=== PATIENT | female | born 1955 | race Caucasian/White ===

== ENCOUNTER 2022-04-27 14:36 | Outpatient (CLI) | payer MEDICARE, SELFPAY ==
--- OUTSIDE RECORDS SUMMARY | 2022-04-02 09:35 | XMS_ITS | Continuity of Care Document ---
:1955 Author Allergies, Adverse Reactions, Alerts Allergen Type Severity Reaction Last Verified Status Updated Influenza Allergy Moderate Hives February 04, Yes Active Vaccines 2020 simbrinza Allergy Unknown red eyes October No Active 2019 Social History Smoking Status Status Start Date End Date Date of Observat ion Never smoked tobacco February 23, 022 11:07am (finding) Observation Status Observation Response Date of Response Non-smoker June 16, 2016 1:24pm Exercises regularly June 16, 2016 1:24pm Social drinker June 16, 2016 1:25pm , paraprofessonal, 4 February 23 10:47am adult children Additional Data Assigned Sex Female Problems Active Problems Medical Problem Onset Date Status Stress bladder incontinence, female Acti ve Glaucoma 2017 Active Dyslipidemia Active Anxiety about health Active Generalized anxiety disorder Active History of tubal ligation Active Medications Medication Status Dose Units Route Directions Qty Days Start End Ins tructions Date Date B-Complex W/ Active 1 EA PO Folic Acid (B Complex) TAB Cholecalcifer Active 2000 UNIT OR Daily 100 February ol (Vitamin 9, D3) 2,000 2019 Unit TAB 3:06pm Escitalopram Active 10 MG PO Daily February Oxalate , (Lexapro) 10 2021 Mg TAB 10:53am Latanoprost Active 1 DROP BOTH Bedtime 1 EYES Amoxicillin/C Discontin 1 TAB PO Twice Daily October lavulanate ued For 10 Days , y Potassium 2019, (Amoxicillin 10:13am 2020 & Pot 12:48p Clavulanate) m 875 Mg/125 Mg TAB Azithromycin Discontin 250-5 MG PO Daily March 5 00 mg x 1 ued 00 y 4th, 3rd, day then 250 2020 2020 mg daily x 4 4:59pm 11:27a days m B-Complex Discontin 1 EA PO March Vitamins ued , (B-Complex) 2020 CAP 11:27a m Brinzolamide- Discontin 1 ML OP Januar Brimonidine ued y 4th, Tartr 2019 (Simbrinza) 1 9:58am Ml LILLIAN Cholecalcifer Discontin 2000 UNIT PO Daily 90 Decembe Octuar ol (Vitamin ued r 20th, y D) 2,000 Unit 2017, TAB 8:35am 2019 1:19pm Clobetasol Discontin 1 ROBERT TOP Twice A Day 15 Augus t APPLY Propionate ued as needed , SPARI NGLY TO (Clobetasol 2014 AFFECTED AREA Propionate 1:02pm Cream) 0.05 % CRE Covid-19 Discontin 30 MCG IM Once October (Sars-Cov-2) ued 11, y Mrna Vir 2022 08, (Pfizer-Biont 10:10am 2021 ech Covid-19) 11:00a 30 Mcg/0.3 Ml m INJ Diphtheria/Te Discontin 0.5 ML IM Once 1 Decembe Decemb tanus/Acell ued r , er Pertussis 2017, (Adacel) 0.5 1:22pm 2018 Ml INJ 1:41pm Escitalopram Discontin 10 MG PO Daily January Oxalate ued 28, 17, (Lexapro) 10 2020 2021 Mg TAB 10:47am 10:53a m Escitalopram Discontin 10 MG PO Daily March Oxalate ued 3rd, 28, (Lexapro) 10 2019 2020 Mg TAB 11:35am 10:47a m Escitalopram Discontin 10 MG PO Daily 90 January Oxalate ued 15, , (Lexapro) 10 2019 2019 Mg TAB 10:36am 11:35a m Escitalopram Discontin 10 MG PO Daily 60 uajanuary Oxalate ued y 4th, 15, (Lexapro) 10 2019 2019 Mg TAB 10:42am 10:36a m Estrogens Discontin 0.5 GRAMS PV Twice 42.5 April Conjugated ued Weekly , , (Premarin 2013 2014 Cream) 0.625 9:47am 1:02pm Mg/1 Gm CRE Multiple Discontin 1 EA PO Shanel Vitamin ued 3rd, (Multivitamin 2019 s) CAP 11:27a m Multiple Discontin 1 EA PO Daily April Vitamin ued , (Multivitamin 2013 s) TAB 9:07am Multiple Discontin 1 EA PO Februa Vitamins W/ ued ry Minerals 4th, (Ocuvite) TAB 2019 10:12a m Nitrofurantoi Discontin 100 MG PO Twice A Day 10 Au francis n ued 5th, Monoh/Nitrofu 2014 r Macro 1:02pm (Macrobid) 100 Mg CAP [place]-3 Fatty Discontin 1200 MG PO Daily February Acids (Fish ued , Oil) 1,200 Mg 2021 CAP 10:30a m Immunizations Immunization Event Date Not Given Dose Sr. Consultant Lot Vac cine Reason Number Number Informatio n Statement (VIS) Deta il COVID-19 Pfizer January 10, PFIZER-BIONTECH [id number] 2020 COVID-19 Pfizer January 30, PFIZER-BIONTECH [id number] 2020 COVID- Pfizer October 12 PFIZER-BIO [id number] 2021 Tetanus/Diptheri September 09 a 2017 Tdap July 10 (adolescent/adul 2007 t) Tdap September 10 SANOFI (adolescent/adul 2017 t) Advance Directives Advance Directive Response Recorded Date/Time Has patient completed a No February 23, 2022 1 1:07am Health Care Directive? Insurance Providers Guarantor Aquiles Friend Address [address] [place], [place] [id number] Contact Info. Home Phone: Payer Policy Id Coverage Id Subscriber's Subscriber Id Effective E xpiration Name Date Date [facility] [id number] Aquiles Friend [id number] Medicare Plans
--- NOTE | 2022-04-27 14:40 | CRLHL7_ITS ---
For Patients: As a result of the Century Cures Act, medical imaging exams and procedure reports are released immediately into your electronic medical record. You may view this report before your referring provider. If you have questions, please contact your health care provider. BILATERAL MAMMOGRAM WITH COMPUTER-AIDED DETECTION AND TOMOSYNTHESIS TECHNIQUE: CC and MLO views were obtained. These mammographic images have been obtained using full-field digital technique. These mammographic images were interpreted with the benefit of computer-aided detection. Breast Tomosynthesis was used in this interpretation. COMPARISON FILM: 12/17/2020, 11/07/2019, 07/26/2018. FINDINGS: There are scattered areas of fibroglandular density IMPRESSION: There is no radiographic evidence for malignancy. ASSESSMENT: BI-RADS Category 1: Negative RECOMMENDATION: Routine screening mammogram in 1 year. A lay language report of this examination will be provided to the patient. Patrick Collins M.D. Diagnostic Radiologist [email or web address] ELENA/[email or web address] gr/Dictated by: Patrick Collins MD @ 04/28/2022 9:01:00 AM (Electronically Signed)
== END 2022-04-27 14:37 | disposition home or self-care (01) ==
LOC: MAMMO 14:37
PROVIDERS: PCP Family Medicine; Visit Provider Family Medicine
DX: Z12.31 Encounter for screening mammogram for malignant neoplasm of breast (principal)
CPT/HCPCS: 77063; 77067

== ENCOUNTER 2023-01-18 08:31 | Outpatient (CLI) | payer MEDICARE, BC, SELFPAY | END 2023-01-18 08:32 | disposition home or self-care (01) | PROVIDERS: PCP Family Medicine; Visit Provider Family Medicine | DX: Z00.00 Encounter for general adult medical examination without abnormal findings (principal); E55.9 Vitamin D deficiency, unspecified; E78.5 Hyperlipidemia, unspecified; Z13.1 Encounter for screening for diabetes mellitus | CPT/HCPCS: 80061; 82306; 82947 ==

== ENCOUNTER 2023-02-08 08:40 | Outpatient (CLI) | payer MEDICARE, BC, SELFPAY ==
--- NOTE | 2023-02-08 10:23 | W.ANESCHARGE ---
Anesthesia Charges Start Date/Time Anesthesia Start Date: 02/08/23 Anesthesia Start Time: 09:55 Stop Date/Time Anesthesia Stop Date: 02/08/23 Anesthesia Stop Time: 10:20
--- NOTE | 2023-02-08 10:55 | W.ANESCHARGE ---
Anesthesia Charges Start Date/Time Anesthesia Start Date: 02/08/23 Anesthesia Start Time: 09:55 Stop Date/Time Anesthesia Stop Date: 02/08/23 Anesthesia Stop Time: 10:20
== END 2023-02-08 08:41 | disposition home or self-care (01) ==
LOC: OP CLINIC 08:41
PROVIDERS: PCP Family Medicine; Visit Provider Surgery
DX: Z12.11 Encounter for screening for malignant neoplasm of colon (principal); K57.30 Diverticulosis of large intestine without perforation or abscess without bleeding; Z80.0 Family history of malignant neoplasm of digestive organs
CPT/HCPCS: 45378; 812; J2704

== ENCOUNTER 2023-05-03 11:13 | Outpatient (CLI) | payer MEDICARE, BC, SELFPAY ==
--- NOTE | 2023-05-03 11:30 | CRLHL7_ITS ---
For Patients: As a result of the Cures Act, medical imaging exams and procedure reports are released immediately into your electronic medical record. You may view this report before your referring provider. If you have questions, please contact your health care provider. BILATERAL SCREENING MAMMOGRAM WITH COMPUTER-AIDED DETECTION AND TOMOSYNTHESIS TECHNIQUE: CC and MLO views were obtained. These mammographic images have been obtained using full-field digital technique. These mammographic images were interpreted with the benefit of computer-aided detection. Breast tomosynthesis was used in this interpretation. COMPARISON FILM: 04/27/22, 12/17/20, 11/07/19. FINDINGS: There are scattered areas of fibroglandular density. IMPRESSION: There is no radiographic evidence for malignancy. ASSESSMENT: BI-RADS Category 1: Negative RECOMMENDATION: Routine screening mammogram in 1 year. A lay language report of this examination will be provided to the patient. PATRICK GLASS M.D. Diagnostic Radiologist [email or web address] ELENA/[email or web address] Transcribed: 05/03/2023, 6:[address]/Dictated by: Patirck Glass MD @ 05/03/2023 1:12:00 PM (Electronically Signed)
== END 2023-05-03 11:14 | disposition home or self-care (01) ==
PROVIDERS: PCP Family Medicine; Visit Provider Family Medicine
DX: Z12.31 Encounter for screening mammogram for malignant neoplasm of breast (principal)
CPT/HCPCS: 77063; 77067

== ENCOUNTER 2024-02-29 08:05 | Outpatient (CLI) | payer MEDICARE, BC, SELFPAY | END 2024-02-29 08:06 | disposition home or self-care (01) | LOC: NFLDREF 03-20 10:28 | PROVIDERS: PCP Family Medicine; Referring Provider Family Medicine; Visit Provider Family Medicine | DX: E78.5 Hyperlipidemia, unspecified (principal); E55.9 Vitamin D deficiency, unspecified; F41.1 Generalized anxiety disorder | CPT/HCPCS: 80053; 80061; 82306 ==

== ENCOUNTER 2024-05-04 14:40 | Outpatient (CLI) | payer MEDICARE, BC, SELFPAY ==
--- NOTE | 2024-05-04 15:00 | CRLHL7_ITS ---
For Patients: As a result of the Century Cures Act, medical imaging exams and procedure reports are released immediately into your electronic medical record. You may view this report before your referring provider. If you have questions, please contact your health care provider. BILATERAL SCREENING MAMMOGRAM WITH COMPUTER-AIDED DETECTION AND TOMOSYNTHESIS TECHNIQUE: CC and MLO views were obtained. These mammographic images have been obtained using full-field digital technique. These mammographic images were interpreted with the benefit of computer-aided detection. Breast Tomosynthesis was used in this interpretation. COMPARISON FILM: 05/03/23, 04/27/22, 12/17/20. FINDINGS: There are scattered areas of fibroglandular density IMPRESSION: There is no radiographic evidence for malignancy. ASSESSMENT: BI-RADS Category 1: Negative RECOMMENDATION: Routine screening mammogram in 1 year. A lay language report of this examination will be provided to the patient. Patrick Collins M.D. Diagnostic Radiologist [email or web address] MARVIN/Dictated by: Patrick Collins MD @ 05/04/2024 3:23:00 PM (Electronically Signed)
== END 2024-05-04 14:41 | disposition home or self-care (01) ==
PROVIDERS: PCP Family Medicine; Visit Provider Family Medicine
DX: Z12.31 Encounter for screening mammogram for malignant neoplasm of breast (principal)
CPT/HCPCS: 77063; 77067

== ENCOUNTER 2025-04-17 10:45 | Outpatient (CLI) | payer MEDICARE, BC, SELFPAY | END 2025-04-17 10:46 | disposition home or self-care (01) | LOC: NFLDREF 04-21 06:44 | PROVIDERS: PCP Family Medicine; Referring Provider Family Medicine; Visit Provider Family Medicine | DX: Z00.00 Encounter for general adult medical examination without abnormal findings (principal); E78.5 Hyperlipidemia, unspecified; M81.0 Age-related osteoporosis without current pathological fracture; M85.852 Other specified disorders of bone density and structure, left thigh; E55.9 Vitamin D deficiency, unspecified; R53.83 Other fatigue | CPT/HCPCS: 80053; 80061; 82306 ==

== ENCOUNTER 2025-05-02 14:48 | Outpatient (CLI) | payer MEDICARE, BC, SELFPAY ==
--- NOTE | 2025-05-02 15:00 | CRLHL7_ITS ---
For Patients: As a result of the Century Cures Act, medical imaging exams and procedure reports are released immediately into your electronic medical record. You may view this report before your referring provider. If you have questions, please contact your health care provider. DXA BONE MINERAL DENSITY STUDY Reason for exam: Follow-up osteopenia. Current height (in): 63. Weight (lb): 130. Menopause age: 52. Ethnicity: White. 1. Have you had a previous hip or vertebral fracture? No. 2. Have you had any fractures during your adult life which did not result from significant trauma (e.g., auto accident)? No. 3. Did either of your parents have a hip fracture? No. 4. Do you smoke? No. 5. Have you ever taken Glucocorticoids? No. 6. Do you have rheumatoid arthritis? No. 7. Do you have secondary osteoporosis? No. 8. Do you drink 3 or more alcoholic drinks per day? No. 9. Are you being treated for osteoporosis? No. 10. Have you ever taken any of the following medications: Actonel, Evista, Fosamax, Miacalcin, Reclast, Boniva, Forteo, HRT (i.e. estrogen/hormone therapy), Protelos, Prolia, Vitamin D, Calcium, other ??? please specify. ANSWER: Yes, Vitamin D and Calcium. 11. Do you have any of the following medical conditions: Anorexia or bulimia, asthma or emphysema, end stage renal disease, hyperparathyroidism, any seizure disorders, cancer, inflammatory bowel diseases, hysterectomy, other ??? please specify. ANSWER: No. 12. What was your maximum height (inches)? 63. 13. Do you perform weight bearing exercise regularly? Yes. 14. Do you regularly consume dairy products? Yes. 15. Do you drink caffeinated beverages? Yes. 16. At what age did your period start? 18. 17. Are you premenopausal? No. 18. How many full term pregnancies have you had? 4. 19. Have you ever missed your period for more than 6 months in a row (not including or menopause)? No. TECHNIQUE: Bone mineral density study was performed using the [employer]. FINDINGS: The results of the study expressed as bone mineral density (BMD) are as follows: Lumbar spine L1 to L3: BMD: 0.993 g/cm2. T-score: -0.2. Z-score: 1.7. Neck Left: BMD: 0.766 g/cm2. T-score: -0.8. Z-score: 0.9. Right: BMD: 0.797 g/cm2. T-score: -0.5 . Z-score: 1.2. Total Left: BMD: 0.851 g/cm2. T-score: -0.7 . Z-score: 0.6. Right: BMD: 0.892 g/cm2. T-score: -0.4. Z-score: 1.0. IMPRESSION: Normal bone density. *Comparison exams done prior to 03/2020 were performed on different unit, [employer]. COMPARISON: Compared with scan of 03/02/2023, the bone mineral density has increased by 3.2 percent at the spine and increased by 3.4 percent at the hip. Fadumo Ballesteros M.D. Diagnostic Radiologist [email or web address] ROC/guido SP/Dictated by: Fadumo Ballesteros MD @ 05/06/2025 7:14:00 AM (Electronically Signed)
== END 2025-05-02 14:49 | disposition home or self-care (01) ==
LOC: RAD 14:50
PROVIDERS: PCP Family Medicine; Visit Provider Family Medicine
DX: M85.852 Other specified disorders of bone density and structure, left thigh (principal)
CPT/HCPCS: 77080

== ENCOUNTER 2025-07-09 13:27 | Outpatient (CLI) | payer MEDICARE, BC, SELFPAY ==
--- NOTE | 2025-07-09 13:40 | CRLHL7_ITS ---
For Patients: As a result of the Century Cures Act, medical imaging exams and procedure reports are released immediately into your electronic medical record. You may view this report before your referring provider. If you have questions, please contact your health care provider. INDICATION: BILATERAL SCREENING MAMMOGRAM, ASYMPTOMATIC 69 Y/O FEMALE COMPARISON: 05/04/2024, 05/03/2023, 04/27/2022 TECHNIQUE: Digital mammogram in CC and MLO projections including computer-aided detection (CAD) and tomosynthesis. BREAST COMPOSITION: There are scattered areas of fibroglandular density. FINDINGS: No suspicious findings. ASSESSMENT: BI-RADS 1 Negative RECOMMENDATION: Annual screening mammogram. A lay language report of this examination will be provided to the patient. Dictated by: Patrick Collins MD @ 07/10/2025 10:59:13 (Electronically Signed)
== END 2025-07-09 13:28 | disposition home or self-care (01) ==
LOC: MAMMO 13:28
PROVIDERS: PCP Family Medicine; Visit Provider Family Medicine
DX: Z12.31 Encounter for screening mammogram for malignant neoplasm of breast (principal)
CPT/HCPCS: 77063; 77067

== ENCOUNTER 2025-07-10 09:39 | Outpatient (CLI) | payer MEDICARE, BC, SELFPAY | END 2025-07-10 09:40 | disposition home or self-care (01) | LOC: NFLDREF 07-12 14:33 | PROVIDERS: PCP Family Medicine; Referring Provider Family Medicine; Visit Provider Family Medicine | DX: E78.5 Hyperlipidemia, unspecified (principal) | CPT/HCPCS: 80061 ==